=== PATIENT | male | born 1995 | race Caucasian/White ===

== ENCOUNTER 2019-01-25 20:16 | Emergency (ER) | payer MEDICAID ==
[~2019-01-25] VITALS: Ht 175.3 cm; Wt 69.9 kg
[2019-01-25 22:26] VITALS: BP 136/93
== END 2019-01-25 22:26 | disposition home or self-care (01) ==
LOC: ED 20:16
DX: I10 Essential (primary) hypertension (principal)

== ENCOUNTER 2019-03-09 12:43 | Inpatient (IN) | payer MEDICAID ==
[~2019-03-09] VITALS: Ht 175.3 cm; Wt 72.7 kg
[2019-03-09 14:42] LABS: BASOPHIL % 0.6 % (0-2); PLATELET COUNT 246 x10^3mcL (130-400)
[2019-03-09 14:56] LABS: CALCIUM 9.3 mg/dL (8.5-10.1); CARBON DIOXIDE 24.2 mmol/L (21-32); CHLORIDE SERUM 106 mmol/L (98-107); CREATININE SERUM 0.9 mg/dL (0.7-1.3); GFR1 > 60 mL/min; GLUCOSE SERUM 95 mg/dL (74-106); POTASSIUM SERUM 3.8 mmol/L (3.5-5.1); SODIUM SERUM 141 mmol/L (136-145)
[2019-03-09 15:00] LABS: ALBUMIN 4.9 g/dL (3.4-5.0); ALKALINE PHOSPHATASE 96 U/L (46-116); ALT/SGPT 16 U/L (16-63); AST/SGOT 13 U/L (15-37)
[2019-03-09 15:01] LABS: TOTAL PROTEIN, SERUM 8.4 g/dL (6.4-8.2)
[2019-03-09 15:14] LABS: AMPHETAMINE QUAL UR NONE DETECTED (See below)
[2019-03-09 17:30] LABS: T3 TOTAL 1.17 ng/mL
[2019-03-09 17:33] LABS: FREE T4 1.37 ng/dL (0.76-1.46); FREE THYROXINE INDEX 3.6 ug/dL (1.4-4.5); T4(THYROXINE) 10.1 ug/dL (4.7-13.3)
[2019-03-09 17:49] VITALS: BP 130/77
[2019-03-09 17:51] VITALS: Ht 175.3 cm; Wt 72.7 kg
[2019-03-09 18:27] LABS: microscopic required? NO
[2019-03-09 18:31] LABS: UA SPECIFIC GRAVITY 1.015 (1.005-1.035); urine erythrocyte NEGATIVE (NEGATIVE)
[2019-03-09 20:31] VITALS: BP 111/41
[2019-03-10 04:56] VITALS: BP 117/63
[2019-03-10 06:48] LABS: BASOPHIL % 0.7 % (0-2); PLATELET COUNT 222 x10^3mcL (130-400)
[2019-03-10 06:59] LABS: CARBON DIOXIDE 22.8 mmol/L (21-32); CHLORIDE SERUM 109 mmol/L (98-107); CREATININE SERUM 0.8 mg/dL (0.7-1.3); GFR1 > 60 mL/min; GLUCOSE SERUM 97 mg/dL (74-106); PHOSPHOROUS 3.3 mg/dL (2.5-4.9); POTASSIUM SERUM 4.3 mmol/L (3.5-5.1); SODIUM SERUM 142 mmol/L (136-145)
[2019-03-10 07:54] VITALS: BP 133/57
[2019-03-10 12:09] VITALS: BP 123/71
[2019-03-10 17:32] VITALS: BP 129/77
[2019-03-10 20:46] VITALS: BP 136/72
[2019-03-11 05:42] VITALS: BP 126/57
[2019-03-11 06:35] LABS: CALCIUM 9.3 mg/dL (8.5-10.1); CARBON DIOXIDE 24.7 mmol/L (21-32); CHLORIDE SERUM 106 mmol/L (98-107); CREATININE SERUM 0.9 mg/dL (0.7-1.3); GFR1 > 60 mL/min; GLUCOSE SERUM 92 mg/dL (74-106); MAGNESIUM 2.1 mg/dL (1.8-2.4); PHOSPHOROUS 3.6 mg/dL (2.5-4.9); SODIUM SERUM 142 mmol/L (136-145)
[2019-03-11 06:36] LABS: BASOPHIL % 0.9 % (0-2); PLATELET COUNT 214 x10^3mcL (130-400); RED CELL DISTRIBUTION WIDTH 12.2 % (11.5-14.5)
[2019-03-11 08:08] VITALS: BP 140/72
[2019-03-11] MEDS ORDERED: GOOD SENSE OMEP20 MG PO (09:40)
[2019-03-11] MEDS ORDERED: CEPL MM (09:41)
[2019-03-11 11:44] VITALS: BP 132/64
[2019-03-11 16:15] VITALS: BP 144/73
== END 2019-03-11 19:04 | disposition home or self-care (01) | DRG 241 ==
LOC: ED 12:43 → DU 16:30
PROVIDERS: Emergency Medicine; ADMIT Internal Medicine
DX: K29.70 Gastritis, unspecified, without bleeding (principal); N17.0 Acute kidney failure with tubular necrosis; I45.6 Pre-excitation syndrome; E86.0 Dehydration; D72.829 Elevated white blood cell count, unspecified; E80.6 Other disorders of bilirubin metabolism; Z68.23 Body mass index [BMI] 23.0-23.9, adult
CPT/HCPCS: 83880; 84439; 85378; 87804; G0378; J7030; Q0092

== ENCOUNTER 2019-10-25 08:31 | Emergency (ER) | payer OTHER ==
[~2019-10-25] VITALS: Ht 175.3 cm; Wt 60.8 kg
[~2019-10-25 08:31] MED LIST: CEPL MM; GOOD SENSE OMEP20 MG PO
[2019-10-25 08:41] VITALS: Ht 175.3 cm; Wt 60.8 kg
[2019-10-25 09:16] LABS: CALCIUM 10.1 mg/dL (8.5-10.1); CARBON DIOXIDE 25.7 mmol/L (21-32); CHLORIDE SERUM 103 mmol/L (98-107); GFR1 > 60 mL/min; GLUCOSE SERUM 106 mg/dL (74-106); POTASSIUM SERUM 3.8 mmol/L (3.5-5.1); SODIUM SERUM 140 mmol/L (136-145)
[2019-10-25 09:20] LABS: ALKALINE PHOSPHATASE 91 U/L (46-116); ALT/SGPT 19 U/L (16-63); AST/SGOT 10 U/L (15-37); BILIRUBIN TOTAL 4.32 mg/dL (0.20-1.00); LIPASE 66 IU/L (73-393)
[2019-10-25 09:21] LABS: ALBUMIN 5.2 g/dL (3.4-5.0); BASOPHIL % 0.6 % (0-2); PLATELET COUNT 198 x10^3mcL (130-400); TOTAL PROTEIN, SERUM 8.4 g/dL (6.4-8.2)
[2019-10-25 10:42] VITALS: BP 123/82
== END 2019-10-25 10:42 | disposition home or self-care (01) ==
LOC: ED 08:31
PROVIDERS: Emergency Medicine
DX: K29.70 Gastritis, unspecified, without bleeding (principal)
CPT/HCPCS: 36415